=== PATIENT | female | born 1945 | race Caucasian/White ===

== ENCOUNTER → 2017-05-10 | Outpatient (CLI) | payer MEDICARE ==
--- NOTE | 2017-05-10 11:58 | MR ---
MRI brain and CERVICAL SPINE: CLINICAL HISTORY: Imbalance, cerebral infarction TECHNIQUE: Multiplanar, multisequence imaging of the cervical spine and brain is performed without co ntrast COMPARISON: MR brain 05/06/2010, CT neck 06/14/2010. FINDINGS: MRI BRAIN: Periventricular scattered hyperintensities are present within the white matter as on previ ous exam. Cortical atrophy is again noted. Ventricles show a stable appearance. There is no evident h emorrhage. There are normal vascular flow voids. Corpus callosum, pituitary, cervical medullary junct ion, cerebellopontine angles are within normal limits. Inflammatory change again noted within the rig ht mastoid air cells. Mild inflammatory change present in the ethmoid air cells. Orbits are symmetric . IMPRESSION: Stable brain MR, probable chronic small vessel ischemia, age related atrophy. Cervical spine MRI: Cervical vertebral bodies show preserved height, minimal retrolisthesis grade 1 C5-6, C6-7. There is multilevel spondylosis with loss of disc height greatest at C5-6, C6-7, C7-T1, there is endplate disc ogenic marrow signal change. Cervical cord signal is maintained. C2-3: Minimal posterior broad-based disc bulge causes slight anterior mass effect on the thecal sac. No foraminal encroachment or significant central stenosis. C3-4: Small central posterior disc bulge may contact the anterior cervical cord. Foraminal encroachme nt is present left greater than right. Lateral extension endplate disc complex is noted. Mild central stenosis. C4-5: Posterior extension of endplate disc complex likely contacts anterior cervical. Mild foraminal encroachment is present. No significant central stenosis. C5-6: Posterior extension of endplate disc complex may contact the anterior cervical. There is bilate ral foraminal encroachment. On mild central stenosis. C6-7: Posterior extension of endplate disc complex extends circumferentially to cause bilateral kelley inal encroachment. On mild central stenosis. C7-T1 no significant foraminal encroachment or central stenosis. Mild posterior extension of endplate disc complex causes slight anterior mass effect on the thecal sac. IMPRESSION: Degenerative disc disease as described.
== END | disposition home or self-care (01) ==
LOC: RADMRIMAIN 08:14
PROVIDERS: ATTEND Psychiatry & Neurology Neurology
DX: G31.1 Senile degeneration of brain, not elsewhere classified (principal); M50.30 Other cervical disc degeneration, unspecified cervical region
CPT/HCPCS: 70551; 72141

== ENCOUNTER → 2018-04-10 | Outpatient (CLI) | payer MEDICARE ==
--- NOTE | 2018-04-11 12:12 | MM ---
Reason for exam: screening (asymptomatic). Last mammogram was performed 2 years and 8 months ago. History: Patient is postmenopausal. Excisional biopsy of the right breast, 2006. Benign excisional biopsy of the left breast. Took estrogen for 19 years 2 months beginning at age 45. Physical Findings: A clinical breast exam by your physician is recommended on an annual basis and results should be correlated with mammographic findings. MG 3D Screening Mammo W/Cad Bilateral CC and MLO view(s) were taken. Prior study comparison: August 18, 2015, bilateral MG screening mammo w CAD. October 13, 2011, CAD bilateral diagnostic mammogram. There are scattered fibroglandular densities. There is no discrete abnormality. No significant changes when compared with prior studies. ASSESSMENT: Negative, BI-RAD 1 RECOMMENDATION: Routine screening mammogram of both breasts in 1 year.
== END | disposition home or self-care (01) ==
LOC: RADMAMWWP 11:50
PROVIDERS: ATTEND Family Medicine
DX: Z12.31 Encounter for screening mammogram for malignant neoplasm of breast (principal)
CPT/HCPCS: 77063; 77067

== ENCOUNTER → 2019-07-05 | Outpatient (CLI) | payer MEDICARE ==
--- NOTE | 2019-07-09 07:54 | MM ---
Reason for exam: screening (asymptomatic). Last mammogram was performed 1 year and 3 months ago. History: Patient is postmenopausal. Excisional biopsy of the right breast, 2006. Benign excisional biopsy of the left breast. Took estrogen for 19 years 2 months beginning at age 45. Physical Findings: A clinical breast exam by your physician is recommended on an annual basis and results should be correlated with mammographic findings. MG 3D Screening Mammo W/Cad Bilateral CC, MLO, and XCCL view(s) were taken. Prior study comparison: April 10, 2018, bilateral MG 3d screening mammo w/cad. August 18, 2015, bilateral MG screening mammo w CAD. The breast tissue is almost entirely fat. Post surgical changes in the left breast. No significant changes when compared with prior studies. ASSESSMENT: Benign, BI-RAD 2 RECOMMENDATION: Routine screening mammogram of both breasts in 1 year.
== END | disposition home or self-care (01) ==
LOC: RADMAMWWP 15:24
PROVIDERS: ATTEND Family Medicine
DX: Z12.31 Encounter for screening mammogram for malignant neoplasm of breast (principal)
CPT/HCPCS: 77063; 77067

== ENCOUNTER → 2021-06-18 | Outpatient (CLI) | payer MEDICARE ==
[2021-06-18 09:47] LABS: Appearance,Urine Clear (Clear); Bilirubin,Urine Negative (Negative); Blood,Urine Negative (Negative); Color,Urine Yellow; Glucose,Urine (UA) Negative (Negative); Ketones,Urine Trace (Negative); Leukocyte Esterase,Urine Large (Negative); Mucus,Urine Rare /hpf; Nitrite,Urine Negative (Negative); Protein,Urine Negative (Negative); RBC,Urine 1 /hpf (0-5); Specific Gravity,Urine 1.019 (1.001-1.035); Squamous Epithelial Cell,Urine 2 /hpf (0-4); Urobilinogen,Urine <2.0 mg/dL (<2.0); WBC,Urine 13 /hpf (0-5)
[2021-06-18 17:10] LABS: Basophils # (A) 0.04 X 10*3/uL (0.00-0.10); Basophils % (A) 0.6 %; Eosinophils # (A) 0.48 X 10*3/uL (0.04-0.35); Eosinophils % (A) 7.3 %; HCT 44.9 % (37.2-46.3); Lymphocytes # (A) 1.29 X 10*3/uL (0.90-5.00); Lymphocytes % (A) 19.7 %; MCH 30.4 pg (27.0-32.0); MCHC 31.2 g/dL (32.0-37.0); MCV 97.6 fL (80.0-97.0); Mean Platelet Volume 11.7 fL (9.5-12.2); Monocytes # (A) 0.89 X 10*3/uL (0.20-1.00); Monocytes % (A) 13.6 %; Neutrophils # (A) 3.83 X 10*3/uL (1.80-7.70); Neutrophils % (A) 58.5 %; Platelet Count 236 X 10*3/uL (140-440); RDW 13.2 % (11.5-14.5); WBC 6.55 X 10*3/uL (4.50-10.00)
[2021-06-18 17:29] LABS: African American GFR (CKD) 46.5 (60.0-200.0); Albumin 4.2 g/dL (3.8-4.9); Albumin/Globulin Ratio 1.68 (1.60-3.17); Anion Gap 12.9 mmol/L (4.00-12.00); BUN/Creat Ratio 14.08 Ratio (12.00-20.00); Blood Urea Nitrogen 18.3 mg/dL (9.0-27.0); Calcium 9.8 mg/dL (8.7-10.3); Carbon Dioxide 26.1 mmol/L (21.6-31.8); Globulin 2.5 g/dL (1.6-3.3); Non-African American GFR(CKD) 40.1 (60.0-200.0); Potassium 4.9 mmol/L (3.5-5.5); T4, Free (Free Thyroxine) 1.44 ng/dL (0.800-1.800); Total Bilirubin 0.4 mg/dL (0.30-1.20); Total Protein 6.7 g/dL (6.2-8.2)
[2021-06-18 20:06] LABS: Erythrocyte Sedimentation Rate 68 mm/Hr (0-30)
== END | disposition home or self-care (01) ==
LOC: LABWHC1 06-17 14:17
PROVIDERS: ATTEND Psychiatry & Neurology Neurology
DX: E03.9 Hypothyroidism, unspecified (principal); E55.9 Vitamin D deficiency, unspecified; R53.1 Weakness; R41.82 Altered mental status, unspecified; R73.9 Hyperglycemia, unspecified
CPT/HCPCS: 84439; 80053; 85652; 82607; 82550; 84443; 85025; 81001; 82306; 87086; 83036; 36415; G0480; 80338

== ENCOUNTER → 2021-06-29 | Outpatient (CLI) | payer MEDICARE ==
--- NOTE | 2021-06-29 14:01 | CT ---
EXAMINATION TYPE: CT brain wo con DATE OF EXAM: 06/29/2021 HISTORY: Unsteady gait and altered mental status. CT DLP: 1058 mGycm. Automated Exposure Control for Dose Reduction was Utilized. TECHNIQUE: CT scan of the head is performed without contrast. COMPARISON: MRI brain May 10, 2017. FINDINGS: There is no acute intracranial hemorrhage or midline shift identified. There is mild vent ricular and sulcal prominence. Ventricular size is slightly prominent to degree of sulcal effacement but no significant change from 2017 MRI. Fourth ventricle is not dilated. There is mild to moderate l ow-attenuation in the periventricular white matter consistent with chronic small vessel ischemic schulz ge. Cortical olivia bilaterally are present. Nasal septum redemonstrated deviated to right of midlin e. Visualized paranasal sinuses are clear. IMPRESSION: No acute intracranial hemorrhage or midline shift. There is mild old diffuse cerebral a trophy and mild to moderate chronic small vessel ischemic change redemonstrated. No significant schulz ge from 2017 MRI noted.
== END | disposition home or self-care (01) ==
LOC: RADCTMAIN 13:06
PROVIDERS: ATTEND Psychiatry & Neurology Neurology
DX: I67.82 Cerebral ischemia (principal)
CPT/HCPCS: 70450

== ENCOUNTER → 2021-07-14 | Outpatient (CLI) | payer MEDICARE | END | disposition home or self-care (01) | LOC: LABWHC1 13:15 | PROVIDERS: ATTEND Psychiatry & Neurology Psychiatry | DX: F33.41 Major depressive disorder, recurrent, in partial remission (principal) | CPT/HCPCS: 36415 ==

== ENCOUNTER → 2021-07-20 | Outpatient (CLI) | payer MEDICARE | END | disposition home or self-care (01) | LOC: LABWHC1 11:15 | PROVIDERS: ATTEND Psychiatry & Neurology Neurology | DX: F99 Mental disorder, not otherwise specified (principal); F41.9 Anxiety disorder, unspecified; R41.0 Disorientation, unspecified | CPT/HCPCS: 36415; 80299 ==

== ENCOUNTER → 2021-09-03 | Outpatient (CLI) | payer MEDICARE ==
[2021-09-03 23:40] LABS: T4, Free (Free Thyroxine) 1.63 ng/dL (0.800-1.800)
== END | disposition home or self-care (01) ==
LOC: LABWHC1 16:19
PROVIDERS: ATTEND Internal Medicine
DX: E03.8 Other specified hypothyroidism (principal); E55.9 Vitamin D deficiency, unspecified
CPT/HCPCS: 36415; 82306; 84439; 84443

== ENCOUNTER → 2021-09-27 | Outpatient (CLI) | payer MEDICARE ==
[2021-09-27 15:18] LABS: Appearance,Urine Clear (Clear); Bilirubin,Urine Negative (Negative); Blood,Urine Negative (Negative); Color,Urine Light Yellow; Glucose,Urine (UA) 4+ (Negative); Ketones,Urine Negative (Negative); Leukocyte Esterase,Urine Trace (Negative); Mucus,Urine Rare /hpf; Nitrite,Urine Negative (Negative); PH, Urine 5.5 (5.0-8.0); Protein,Urine Negative (Negative); RBC,Urine <1 /hpf (0-5); Specific Gravity,Urine 1.011 (1.001-1.035); Squamous Epithelial Cell,Urine 1 /hpf (0-4); Urobilinogen,Urine <2.0 mg/dL (<2.0); WBC,Urine 2 /hpf (0-5)
[2021-09-27 18:23] LABS: Basophils # (A) 0.06 X 10*3/uL (0.00-0.10); Basophils % (A) 0.8 %; Eosinophils # (A) 0.37 X 10*3/uL (0.04-0.35); HCT 42.9 % (37.2-46.3); HGB 13.3 g/dL (12.0-15.0); Immature Grans, Automated 0.3 %; Lymphocytes # (A) 1.68 X 10*3/uL (0.90-5.00); Lymphocytes % (A) 22.9 %; MCH 29.8 pg (27.0-32.0); Monocytes # (A) 0.85 X 10*3/uL (0.20-1.00); Monocytes % (A) 11.6 %; NRBC Per 100 WBC 0 /100 WBCS (0.0-0.0); Neutrophils # (A) 4.36 X 10*3/uL (1.80-7.70); Neutrophils % (A) 59.4 %; Platelet Count 220 X 10*3/uL (140-440); RBC 4.47 X 10*6/uL (4.10-5.20); RDW 13.4 % (11.5-14.5); WBC 7.34 X 10*3/uL (4.50-10.00)
[2021-09-27 18:32] LABS: ALT 11 U/L (8-44); AST 17 U/L (13-35); African American GFR (CKD) 51.2 (60.0-200.0); Albumin/Globulin Ratio 1.38 (1.60-3.17); Alkaline Phosphatase 70 U/L (41-126); BUN/Creat Ratio 17.08 Ratio (12.00-20.00); Blood Urea Nitrogen 20.5 mg/dL (9.0-27.0); Calcium 9.9 mg/dL (8.7-10.3); Carbon Dioxide 26.3 mmol/L (20.0-27.5); Chloride 105 mmol/L (96-109); Globulin 2.9 g/dL (1.6-3.3); Glucose 93 mg/dL (70-110); Non-African American GFR(CKD) 44.2 (60.0-200.0); Phosphorus 3.9 mg/dL (2.4-5.1); Potassium 5.2 mmol/L (3.5-5.5); Sodium 141 mmol/L (135-145); Total Bilirubin <0.15 mg/dL (0.30-1.20); Total Protein 6.9 g/dL (6.2-8.2)
== END | disposition home or self-care (01) ==
LOC: LABWHC1 13:32
PROVIDERS: ATTEND Psychiatry & Neurology Psychiatry
DX: F33.41 Major depressive disorder, recurrent, in partial remission (principal); N28.9 Disorder of kidney and ureter, unspecified
CPT/HCPCS: 36415; 80053; 81001; 84100; 85025

== ENCOUNTER → 2021-10-13 | Outpatient (CLI) | payer MEDICARE ==
[2021-10-14 01:40] LABS: African American GFR (CKD) 46.9 (60.0-200.0); Anion Gap 12.1 mmol/L (10.00-18.00); BUN/Creat Ratio 12.02 Ratio (12.00-20.00); Blood Urea Nitrogen 15.5 mg/dL (9.0-27.0); Calcium 9.7 mg/dL (8.7-10.3); Carbon Dioxide 23.8 mmol/L (20.0-27.5); Non-African American GFR(CKD) 40.5 (60.0-200.0); Potassium 4.7 mmol/L (3.5-5.5)
== END | disposition home or self-care (01) ==
LOC: LABWHC1 12:08
PROVIDERS: ATTEND Internal Medicine
DX: E03.8 Other specified hypothyroidism (principal); N28.9 Disorder of kidney and ureter, unspecified
CPT/HCPCS: 36415; 80048; 84439; 84443

== ENCOUNTER → 2022-03-04 | Outpatient (CLI) | payer MEDICARE | END | disposition home or self-care (01) | LOC: LABWHC1 15:50 | PROVIDERS: ATTEND Psychiatry & Neurology Psychiatry | DX: F33.41 Major depressive disorder, recurrent, in partial remission (principal) | CPT/HCPCS: 36415 ==

== ENCOUNTER 2022-05-13 14:43 | Emergency (ER) | payer MEDICARE ==
[2022-05-13 15:40] VITALS: RESP 20
--- NOTE | 2022-05-13 16:12 | XR ---
EXAMINATION TYPE: XR chest 2V DATE OF EXAM: 05/13/2022 COMPARISON: 06/14/2010 INDICATION: Cough x1 week TECHNIQUE: Frontal and lateral views of the chest are obtained. The patient is rotated to the right. FINDINGS: The heart size is normal. The pulmonary vasculature is normal. The lungs are clear. IMPRESSION: 1. No acute pulmonary process.
--- NOTE | 2022-05-13 16:50 | ED ---
General Adult HPI - General Chief complaint: Recheck/Abnormal Lab/Rx Stated complaint: COVID TEST,Cough Time Seen by Provider: 05/13/22 16:28 Source: patient Mode of arrival: ambulatory Limitations: no limitations - History of Present Illness Initial comments: Patient is a 77-year-old female who presents to the emergency department with a chief complaint of cough. Patient reports intermittent cough for the past week. Mostly dry with intermittent production of clear sputum. States her cough is slowly getting better but is seeking COVID-19 test. Denies fever, chills, body aches, sore throat, headache, chest pain, shortness of breath, abdominal pain, nausea, vomiting. Denies history of COPD and asthma. - Related Data Allergies Allergy/AdvReac Type Severity Reaction Status Date / Time amoxicillin Allergy Unknown Verified 05/13/22 15:40 Sulfa (Sulfonamide Allergy Unknown Verified 05/13/22 15:40 Antibiotics) Review of Systems ROS Statement: Those systems with pertinent positive or pertinent negative responses have been documented in the HPI. ROS Other: All systems not noted in ROS Statement are negative. Past Medical History Past Medical History: Thyroid Disorder History of Any Multi-Drug Resistant Organisms: None Reported Past Surgical History: Hysterectomy Past Psychological History: ADD/ADHD Smoking Status: Never smoker Past Alcohol Use History: None Reported Past Drug Use History: None Reported General Exam Limitations: no limitations General appearance: alert, in no apparent distress Head exam: Present: atraumatic, normocephalic, normal inspection Eye exam: Present: normal appearance, PERRL, EOMI. Absent: scleral icterus, conjunctival injection, periorbital swelling Respiratory exam: Present: normal lung sounds bilaterally. Absent: respiratory distress, wheezes, rales, rhonchi, stridor Cardiovascular Exam: Present: regular rate, normal rhythm, normal heart sounds. Absent: systolic murmur, diastolic murmur, rubs, gallop, clicks Neurological exam: Present: alert, oriented X3, CN II-XII intact Psychiatric exam: Present: normal affect, normal mood Skin exam: Present: warm, dry, intact, normal color. Absent: rash Course Vital Signs 05/13/22 15:35 Temperature 97.6 F Pulse Rate 68 Respiratory 20 Rate Blood Pressure 136/66 O2 Sat by Pulse 97 Oximetry Medical Decision Making - Medical Decision Making This is a 77-year-old presenting with cough. Covid 19 is not detected. Chest x-ray is negative for acute process. Patient looks well, has no fever, no abnormal lung sounds, no shortness of breath or chest pain. She will be discharged home. Dr. Krishna is my attending. - Lab Data Lab Results 05/13/22 Range/Units 15:41 Coronavirus (PCR) Not Detected (Not Detectd) Disposition Clinical Impression: Cough Disposition: HOME SELF-CARE Condition: Good Instructions (If sedation given, give patient instructions): Upper Respiratory Infection (ED) Additional Instructions: Increase water intake. Follow-up with primary care provider in one to 2 days. Return to the emergency department if you experience new, concerning, or worsening symptoms. Is patient prescribed a controlled substance at d/c from ED?: No Referrals: Catarino Israel MD [Primary Care Provider] - 1-2 days Time of Disposition: 16:50
[2022-05-13 17:13] VITALS: BP 104/63; PULSE 57; TEMP 97.9
== END 2022-05-13 17:21 | disposition home or self-care (01) ==
LOC: EC 14:43
DX: R05.9 Cough, unspecified (principal); E07.9 Disorder of thyroid, unspecified; Z88.1 Allergy status to other antibiotic agents; Z20.822 Contact with and (suspected) exposure to COVID-19; Z88.2 Allergy status to sulfonamides
CPT/HCPCS: 71046; 87635; 99283